=== PATIENT | female | born 1960 | race Asian ===

== ENCOUNTER → 2019-08-18 13:01 | Outpatient (ROUT) | payer SELFPAY ==
[2019-08-21 14:33] LABS: Mitogen-NIL 9.67 IU/mL; QuantiFERON TB POSITIVE (Negative); TB1-NIL 3.06 IU/mL
== END ==
PROVIDERS: Visit Provider Registered Nurse
DX: Z11.1 Encounter for screening for respiratory tuberculosis (principal)
CPT/HCPCS: 36415; 86480